=== PATIENT | female | born 1980 | race Hispanic/Latino ===

== ENCOUNTER 2023-11-04 23:49 | Inpatient (IN) | payer OTHER ==
[~2023-11-04] VITALS: Ht 180.3 cm; Wt 69.4 kg
[2023-11-05] VITALS (19 sets, daily range): BP systolic 113–145; BP diastolic 58–84; PULSE 88–113; RESP 16–26; O2SAT 94–98
[2023-11-05 00:54] LABS: RAPID GROUP A STREP negative (NEGATIVE); SARS-CoV-2, RNA, NAAT NEGATIVE SARS CoV-2 (NEGATIVE)
[2023-11-05 00:55] LABS: INFLUENZA TYPE A NEGATIVE FOR TYPE A (NEG)
[2023-11-05 00:56] LABS: INFLUENZA TYPE B NEGATIVE FOR TYPE B (NEG)
[2023-11-05] MEDS: IPRATROPIUM/ALBUTEROL SULFATE 3 ML SOLUTION IH ONE (00:56)
[2023-11-05] MEDS: SOLU-MEDROL 125MG VIAL IVP ONE (01:25)
[2023-11-05 01:55] LABS: BASOPHILS # (AUTO) 0.08 K/uL (0.00-0.20); BASOPHILS % (AUTO) 0.7 % (0.0-5.0); EOSINOPHILS # (AUTO) 1.24 K/uL (0.00-0.70); EOSINOPHILS % (AUTO) 10.9 % (0.0-8.0); HEMATOCRIT 42.6 % (36-48); IMMATURE GRANULOCYTE ABSOLUTE 0.06 K/uL (0-1); LYMPHOCYTES # (AUTO) 2.5 K/uL (1.0-4.8); MEAN CORPUSCULAR HEMOGLOBIN 30.2 pg (27.0-33.0); MEAN CORPUSCULAR HGB CONC 34.5 g/dL (32.0-36.0); MEAN CORPUSCULAR VOLUME 87.5 fL (79-99); MONOCYTES # (AUTO) 0.8 K/uL (0.1-1.0); MONOCYTES % (AUTO) 6.7 % (3.0-13.0); NEUTROPHILS # (AUTO) 6.8 K/uL (1.8-7.7); NEUTROPHILS % (AUTO) 59.2 % (40.0-77.0); PLATELET COUNT (AUTO) 217 K/uL (130-400); RED BLOOD CELL COUNT(AUTO) 4.87 MIL/uL (4.00-5.50); WHITE BLOOD COUNT (AUTO) 11.4 K/uL (4.8-10.8)
[2023-11-05] MEDS: MAGNESIUM 2GM PREMIX 50ML 25 ML IV STA (01:59)
[2023-11-05 02:05] LABS: CREATININE 0.7 mg/dL (0.5-1.0); POTASSIUM 3.8 mmol/L (3.5-5.1)
[2023-11-05 02:10] LABS: ALBUMIN 3.5 g/dL (3.5-5.0); BILIRUBIN,TOTAL 0.5 mg/dL (0.2-1.0); TOTAL PROTEIN, SERUM 7.1 g/dL (6.0-8.3)
[2023-11-05] MEDS ORDERED: POTASSIUM CHLORIDE 20MEQ/100ML 100 ML IV PRN (02:30)
[2023-11-05] MEDS: SOLU-MEDROL 125MG VIAL IVP SCH (02:30)
[2023-11-05] MEDS ORDERED: ACETAMINOPHEN 325 MG TAB PO PRN ×2 (02:30)
[2023-11-05] MEDS ORDERED: PHARMACY COMMUNICATION MISC SCH (02:30)
[2023-11-05] MEDS ORDERED: DEXTROSE 50%-WATER 50 ML DISP.SYRIN IV PRN (02:30)
[2023-11-05] MEDS ORDERED: AZITHROMYCIN 500MG+NS 250ML 250 ML IV SCH (02:30)
[2023-11-05] MEDS ORDERED: MAGNESIUM 2GM PREMIX 50ML 50 ML IV PRN (02:30)
[2023-11-05] MEDS ORDERED: KCL 20 MEQ ERTAB PO PRN (02:30)
[2023-11-05] MEDS ORDERED: DOXYCYCLINE 100MG+NS 250ML 250 ML IV SCH (02:30)
[2023-11-05] MEDS ORDERED: GLUCAGON 1MG KIT 1 MG ML IM PRN (02:30)
[2023-11-05] MEDS ORDERED: POTASSIUM CHLORIDE 10% ELIXIR 20 MEQ/15 ML UDCUP PO PRN (02:30)
[2023-11-05] MEDS ORDERED: ONDANSETRON 4MG INJ IV PRN (02:30)
[2023-11-05] MEDS: IPRATROPIUM 0.5 MG/2.5 ML INH IH SCH (03:03)
[2023-11-05] MEDS: LEVOFLOXACIN 500 MG/D5W 100 ML 100 ML IV SCH (03:49)
[2023-11-05] MEDS ORDERED: SIMV-43 PO (05:35)
[2023-11-05] MEDS ORDERED: THYR60TA2 PO (05:35)
[2023-11-05] MEDS ORDERED: METF-446 PO (05:35)
[2023-11-05] MEDS: INSULIN HUMULIN R 100 UNIT/ML 3ML SQ SCH (06:17)
[2023-11-05] MEDS: ALBUTEROL 0.083% 2.5 MG/3 ML INH IH SCH (06:26)
[2023-11-05] MEDS: BUDESONIDE 0.25 MG/2 ML INH IH SCH (06:26)
[2023-11-05] MEDS: ALBUTEROL 0.083% 2.5 MG/3 ML INH IH ONE (06:31)
[2023-11-05] MEDS: CETIRIZINE HCL 5 MG TABLET PO SCH (08:49)
[2023-11-05] MEDS: FAMOTIDINE 20MG TAB PO SCH (08:49)
[2023-11-05] MEDS: SOLU-MEDROL 40MG VIAL IVP SCH (08:52)
[2023-11-05] MEDS: ENOXAPARIN SODIUM 30 MG/0.3 ML SQ SCH (08:53)
[2023-11-05] MEDS: GUAIFENESIN-DM 200/20 MG 10 ML PO PRN (11:16)
[2023-11-05] MEDS ORDERED: MONTELUKAST SODIUM 10 MG TAB PO SCH (21:00)
[2023-11-05] MEDS: MONTELUKAST SODIUM 10 MG TAB PO SCH (21:06)
[2023-11-05] MEDS: SIMVASTATIN 20 MG TABLET PO SCH (21:06)
[2023-11-06] VITALS (17 sets, daily range): BP systolic 104–143; BP diastolic 59–84; PULSE 52–125; RESP 16–22; O2SAT 93–100
[2023-11-06 03:55] LABS: BASOPHILS # (AUTO) 0.02 K/uL (0.00-0.20); BASOPHILS % (AUTO) 0.1 % (0.0-5.0); HEMATOCRIT 40.5 % (36-48); IMMATURE GRANULOCYTE ABSOLUTE 0.08 K/uL (0-1); LYMPHOCYTES % (AUTO) 6.4 % (21.0-51.0); MEAN CORPUSCULAR HEMOGLOBIN 29.6 pg (27.0-33.0); MEAN CORPUSCULAR HGB CONC 34.3 g/dL (32.0-36.0); MEAN CORPUSCULAR VOLUME 86.4 fL (79-99); MONOCYTES # (AUTO) 0.4 K/uL (0.1-1.0); MONOCYTES % (AUTO) 2.3 % (3.0-13.0); NEUTROPHILS % (AUTO) 90.7 % (40.0-77.0); PLATELET COUNT (AUTO) 223 K/uL (130-400); RED BLOOD CELL COUNT(AUTO) 4.69 MIL/uL (4.00-5.50); RED CELL DISTRIBUTION WIDTH 12.9 % (11.0-15.5); WHITE BLOOD COUNT (AUTO) 15.4 K/uL (4.8-10.8)
[2023-11-06 04:08] LABS: ALBUMIN 3.4 g/dL (3.5-5.0); BILIRUBIN,TOTAL 0.7 mg/dL (0.2-1.0); CREATININE 0.8 mg/dL (0.5-1.0); MAGNESIUM 2.1 mg/dL (1.80-2.40); PHOSPHORUS 3.8 mg/dL (2.5-4.9); TOTAL PROTEIN, SERUM 6.9 g/dL (6.0-8.3)
[2023-11-06 04:36] LABS: WBC MORPHOLOGY CONSISTENT W/DIFF
[2023-11-06 04:37] LABS: B-TYPE NATRIURETIC PEPTIDE 13 pg/mL (0-100)
[2023-11-06] MEDS ORDERED: ERYTHROMYCIN BASE 500 MG TABLET PO SCH (14:00)
[2023-11-06] MEDS ORDERED: NEOMYCIN SULFATE 500 MG TAB PO SCH (14:00)
[2023-11-06] MEDS: SOLU-MEDROL 40MG VIAL IVP SCH (21:04)
[2023-11-07] VITALS (8 sets, daily range): BP systolic 122–126; BP diastolic 78–81; PULSE 54–92; RESP 18–20; O2SAT 95–98
[2023-11-07 04:58] LABS: BASOPHILS # (AUTO) 0.02 K/uL (0.00-0.20); BASOPHILS % (AUTO) 0.1 % (0.0-5.0); HEMATOCRIT 39.9 % (36-48); IMMATURE GRANULOCYTE ABSOLUTE 0.12 K/uL (0-1); LYMPHOCYTES % (AUTO) 5.3 % (21.0-51.0); MEAN CORPUSCULAR HEMOGLOBIN 30.4 pg (27.0-33.0); MEAN CORPUSCULAR HGB CONC 34.3 g/dL (32.0-36.0); MEAN CORPUSCULAR VOLUME 88.5 fL (79-99); MONOCYTES # (AUTO) 0.5 K/uL (0.1-1.0); MONOCYTES % (AUTO) 2.9 % (3.0-13.0); NEUTROPHILS # (AUTO) 16.4 K/uL (1.8-7.7); PLATELET COUNT (AUTO) 195 K/uL (130-400); RED BLOOD CELL COUNT(AUTO) 4.51 MIL/uL (4.00-5.50); RED CELL DISTRIBUTION WIDTH 13.1 % (11.0-15.5)
[2023-11-07 05:23] LABS: BILIRUBIN,TOTAL 0.4 mg/dL (0.2-1.0); CREATININE 0.8 mg/dL (0.5-1.0); MAGNESIUM 1.9 mg/dL (1.80-2.40); POTASSIUM 4.1 mmol/L (3.5-5.1); TOTAL PROTEIN, SERUM 6.2 g/dL (6.0-8.3)
[2023-11-07] MEDS: PREDNISONE 20 MG TABLET PO SCH (08:19)
[2023-11-07] MEDS ORDERED: MONT-46 PO (13:45)
[2023-11-07] MEDS ORDERED: FAMO20TA8 PO (13:45)
[2023-11-07] MEDS ORDERED: LEVO250T75 PO (13:45)
== END 2023-11-07 14:45 | disposition home or self-care (01) | DRG 202 ==
LOC: EDH 23:49 → EDHIP 23:50 → 2DH 11-05 04:18 → 4CH 11-06 02:02 → 2DH 11-06 02:31 → 4CH 11-06 04:02
PROVIDERS: ADMIT Hospitalist; ATTEND Hospitalist
DX: J45.901 Unspecified asthma with (acute) exacerbation (principal); J18.9 Pneumonia, unspecified organism; Z20.822 Contact with and (suspected) exposure to COVID-19; E03.9 Hypothyroidism, unspecified; D72.10 Eosinophilia, unspecified; E11.65 Type 2 diabetes mellitus with hyperglycemia; E78.00 Pure hypercholesterolemia, unspecified; Z82.49 Family history of ischemic heart disease and other diseases of the circulatory system; Z83.3 Family history of diabetes mellitus; Z86.16 Personal history of COVID-19; Z87.01 Personal history of pneumonia (recurrent); Z90.710 Acquired absence of both cervix and uterus
CPT/HCPCS: 36415; 71045; 80053; 82948; 83735; 83880; 84100; 85025; 87635; 87804; 87880; 94010; 94640; 94664; 94760; G0378; J1650; J1815; J1956; J2919; J2920; J3475